=== PATIENT | female | born 1965 | race Caucasian/White ===

== ENCOUNTER 2019-07-02 14:04 | Outpatient (CLI) | payer OTHER ==
--- NOTE | 2019-07-02 15:14 | MRI ---
EXAM: RIGHT KNEE MRI WITHOUT IV CONTARST: 07/02/19 HISTORY: Internal derangement right knee, medial and anterior right knee pain, swelling, and stiffness followi ng an injury from a fall. FINDINGS: No abnormal joint effusion. Prominent irregular cartilage loss particularly involving the medial srinivasan llar facet cartilage with less marked changes in the medial and lateral compartment. Flap tear of the medial meniscus involving the posterior horn with displaced flap at the level of the body. Minimal f luid density superficial to the superficial MCL, evidence for minimal sprain. The lateral meniscus a ppears unremarkable. The anterior and posterior cruciate ligaments and lateral collateral ligament co mplex and quadriceps and patellar tendons are intact. Minimal altered signal in the patellar tendon t ibial insertion region, possibly residual from prior Hobgood-Schlatter disease without evidence for si gnificant acute process. No significant abnormal marrow signal Nonspecific superficial infrapatellar soft tissue fat stranding. IMPRESSION: Flap tear medial meniscus. Evidence for MCL sprain. Cartilage loss most marked involving the lateral patellar facet. POS: [facility]
== END 2019-07-02 14:05 | disposition home or self-care (01) ==
LOC: BICMRI 14:04
PROVIDERS: ATTEND Orthopaedic Surgery
DX: M23.91 Unspecified internal derangement of right knee (principal); S83.411A Sprain of medial collateral ligament of right knee, initial encounter; S83.241A Other tear of medial meniscus, current injury, right knee, initial encounter

== ENCOUNTER 2019-07-22 15:34 | Outpatient (CLI) | payer OTHER ==
[2019-07-22 16:27] LABS: #Basophils 0.1 thou/uL (0.0-0.2); #Eosinphils 0.2 thou/uL (0.0-0.7); #Lymphocytes 2.5 thou/uL (1.20-3.40); #Monocytes 0.8 thou/uL (0.11-0.59); #Neutrophils 6.6 thou/uL (1.40-6.50); %Eosinophils 2.2 % (0.0-10.0); %Lymphocytes 24.4 % (21.0-51.0); %Monocytes 7.6 % (0.0-10.0); %Neutrophils 64.9 % (42.0-75.0); Hemoglobin 15.3 g/dL (12.0-16.0); Mean Corpuscular HGB CONC 35.4 g/dL (32.0-36.0); Mean Corpuscular Hemoglobin 32.5 pg (27.0-31.0); Mean Corpuscular Volume 91.9 fL (78.0-98.0); Mean Platelet Volume 7.2 fL (7.4-10.4); Platelet Count 509 thou/uL (130-400); RBC Distribution Width 11.3 % (11.5-14.5); Red Blood Cell (RBC) Count 4.71 mill/uL (4.20-5.40); White Blood Cell (WBC) Count 10.1 thou/uL (4.8-10.8)
[2019-07-22 16:45] LABS: Anion Gap 14 mmol/L (10-20); BUN (Urea Nitrogen) 15 mg/dL (9.8-20.1); Calc. Creatinine Clearance 0 mL/min (70-130); Calcium 9.9 mg/dL (7.8-10.44); Carbon Dioxide 23 mmol/L (22-29); Chloride 105 mmol/L (98-107); Estimated GFR-MDRD 74; Glucose 172 mg/dL (70-105); Potassium 3.5 mmol/L (3.5-5.1); Sodium 138 mmol/L (136-145)
== END 2019-07-22 15:35 | disposition home or self-care (01) ==
LOC: LABBT 15:34 → MERGE 15:34 → LABBT 15:35
PROVIDERS: ATTEND Orthopaedic Surgery
DX: Z01.812 Encounter for preprocedural laboratory examination (principal); S83.206A Unspecified tear of unspecified meniscus, current injury, right knee, initial encounter
CPT/HCPCS: 80048; 85025

== ENCOUNTER 2019-07-24 05:37 | Day surgery (SDC) | payer OTHER ==
[2019-07-22 15:40] VITALS: BMI 25.4
[2019-07-24] MEDS ORDERED: Fentanyl 100 MCG/2 ML VIAL ONE ×3 (06:30→09:07)
[2019-07-24] MEDS ORDERED: Midazolam HCl 2 mg/2 ml Vial ONE (06:30)
[2019-07-24] MEDS ORDERED: PROPOFOL 20 ML ONE (06:40)
--- NOTE | 2019-07-24 12:28 | OP ---
DATE OF PROCEDURE: 07/24/2019 PREOPERATIVE DIAGNOSIS: Right knee medial meniscus flap tear. POSTOPERATIVE DIAGNOSES: 1. Right knee medial meniscus flap tear. 2. 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 3. Area on the superior facet of the patella with grade 2 and 3 changes. PROCEDURE PERFORMED: Right knee arthroscopy with partial medial meniscectomy. TECHNICAL SERVICES ANALYST: None. ESTIMATED BLOOD LOSS: Minimal. COMPLICATIONS: None. ANESTHESIA: The patient did have a general anesthetic as well as a preoperative local knee block. DISPOSITION: She went to recovery room in stable condition. INDICATIONS: This is a 53-year-old diabetic female, who comes in complaining of significant pain, swelling, and catching of the knee. At this time, she opted for surgery. DESCRIPTION OF PROCEDURE: After all appropriate consent forms were explained and signed, she was taken back to the operative room and at this time was given general anesthetic. Once the level of anesthesia was appropriate, tourniquet was placed in the right thigh. Leg was placed in arthroscopic leg cerrato. While the patient was asleep, we did do an exam under anesthesia and found her to have some grade 1 laxity to the MCL. Otherwise, normal ligamentous exam. The right lower extremity was prepped and draped in standard surgical fashion. Limb was exsanguinated. Tourniquet was taken to 250 mmHg. Inferolateral portal was established. Scope was placed into the knee joint. A needle localization technique was then used to make a medial working portal. Diagnostic arthroscopy commenced in the notch. The ACL and PCL were probed. They were found to be intact. The medial compartment was entered. There was a blistered area on the medial femoral condyle. It was stable and left alone. The medial tibial plateau overall was in good condition. There was a large flap tear of the medial meniscus, very complex in nature and a partial meniscectomy was performed using meniscal biter and shaver leaving all viable tissue. There was also an unstable area of medial cartilage on the femoral condyle about a centimeter in diameter, which had some unstable chondral flaps. These were gently debrided, leaving all viable tissue. This was a grade 2 lesion with small area of grade 3 as well. No exposed bone was noted. Lateral compartment was evaluated and found to be intact. Medial and lateral gutters were swept through. There were some small cartilaginous loose bodies, which were sucked into the shaver. The patellofemoral joint showed the trochlea that was in good condition. However, the patella itself had in its central region between the superior and inferior facets of the patella and area of cartilage loss. There were no unstable chondral flaps. At this time, we went through the knee one more time looking for any loose pieces when there were no more found, we removed the scope, drained the knee, closed these portal with a nylon stitch. Bulky sterile dressing was applied. Tourniquet was let down. Toes pinked up nicely. The patient was awakened and taken to recovery room in stable condition. All counts were correct at the end of the case. She did receive preoperative IV antibiotics. Job ID: [id number]
[2019-07-24] MEDS ORDERED: Bupivacaine HCl 0.5%/Epinephrine 1:200,000/PF 30 ml Vial ONE (13:18)
[2019-07-24] MEDS ORDERED: Lidocaine 2% w/Epinephrine 1:200K 20 ML VIAL ONE (13:18)
[2019-07-24] MEDS ORDERED: Lidocaine 1% PF 5 ML VIAL ONE (14:47)
[2019-07-24] MEDS ORDERED: Ondansetron PF 4 MG/2 ML Vial ONE (14:47)
[2019-07-24] MEDS ORDERED: Metoclopramide HCl 10 MG/2 ML VIAL ONE (14:47)
[2019-07-24] MEDS ORDERED: PROPOFOL 200 MG/20 ML VIAL ONE (14:47)
== END 2019-07-24 11:13 | disposition home or self-care (01) ==
LOC: SDC 05:37 → EDBD 16:00 → MERGE 16:00
PROVIDERS: ATTEND Orthopaedic Surgery
PROC: 0SBC4ZZ Excision of Right Knee Joint, Percutaneous Endoscopic Approach (ICD-10-PCS; principal; 2019-07-24)
DX: S83.231A Complex tear of medial meniscus, current injury, right knee, initial encounter (principal); M94.261 Chondromalacia, right knee; E03.9 Hypothyroidism, unspecified; E10.9 Type 1 diabetes mellitus without complications; Z79.899 Other long term (current) drug therapy
CPT/HCPCS: 93005; 93010; J0690; J2250; J2704; J3010